=== PATIENT | female | born 1990 | race Caucasian/White ===

== ENCOUNTER 2019-07-20 16:35 | Inpatient (IN) ==
[2019-07-20] MEDS ORDERED: OXYTOCIN 30 UNITS/500 ML BAG IV PRN ×2 (16:57→17:01)
[2019-07-20] MEDS ORDERED: PENICILLIN G POTASSIUM 6 MU in DEXTROSE 5% 250 ML IV STA (16:57)
[2019-07-20] MEDS: LACTATED RINGER'S 1,000 ML IV PRN ×2 (17:05→22:00)
--- NOTE | 2019-07-20 17:05 | History & Physical Report ---
Date of Service July 20, 2019 Assessment & Plan (1) Prolonged , antepartum: (2) Carrier of group B Streptococcus: -Tracing category 1 -Gross rupture, postdates -GBS positive, will start penicillin per protocol -Pitocin for induction of labor -Anticipate vaginal delivery History of Present Illness Chief Complaint: Rupture of membranes Primary Care Provider: NO PCP The patient is a 28-year old 1 para 0 with an EDC of 17 July by first trimester ultrasound at 40+ weeks gestational age presents to labor and delivery with leaking of fluid. Patient states that her membranes ruptured approximately 2 hours ago. She has been having mild irregular contractions for the last 48 hours. The patient has had a benign course. Her blood type is O+, antibody negative, rubella immune, hepatitis B negative, HIV negative, normal 1 hour Glucola x2, and a positive third trimester beta strep culture. Allergies Allergy/AdvReac Type Severity Reaction Status Date / Time No Known Drug Allergies Allergy Verified 07/17/19 08:16 Home Medications Home Medications Medication Instructions Recorded Confirmed Type cetirizine 10 mg tablet PO tab 04/14/19 07/17/19 History docosahexanoic acid PO 04/14/19 07/17/19 History montelukast 10 mg tablet PO tab 04/14/19 07/17/19 History ferrous sulfate PO 05/08/19 07/17/19 History Patient History Medical History Allergic rhinitis Asthma Chronic vulvitis Scoliosis History of galactorrhea Surgical History S/P wisdom tooth extraction Status post LASIK surgery Family History Mother Endometriosis Grandmother (Maternal) Diabetes Hypertension Dyslipidemia Father Hypertension Social History Smoking Status: Never smoker Physical Exam Constitutional: WD/WN, vitals as above Respiratory: Auscultation: lungs clear to auscultation bilaterally Cardiovascular: RRR, no murmur, no edema Extremities: no calf tenderness Gastrointestinal (Abdomen): Gravid, vertex, positive heart tones, estimated weight of 7 and half pounds Genitourinary: OB Exam Monitor Tracing: + category I and + normal FHT variability Cervix: Sterile speculum examination-gross rupture, cervix 4 cm/80%/-2 Results & Data Vital Signs (Past 12 Hours) Vital Signs Pulse BP 07/20/19 16:44 92 H 140/93
[2019-07-20 17:35] LABS: Hematocrit (blood only) 35.9 % (37-47); Hemoglobin 12.2 g/dL (12.0-16.0); Mean Corpuscular Hemoglobin 30.4 pg (25-34); Mean Corpuscular Volume 89.5 fL (80-100); Mean Platelet Volume 12.7 fL (7.4-10.4); Platelet Count 134 K/uL (130-400); RDW Coefficient of Variation 13.8 % (11.5-14.5); RDW Standard Deviation 45.3 fL (36.4-46.3); Red Blood Count 4.01 M/uL (4.2-5.4); White Blood Count 13.24 K/uL (4.8-10.8)
[2019-07-20] MEDS ORDERED: fentaNYL citrate 100 MCG/2 ML VIAL ONE (19:26)
[2019-07-20] MEDS ORDERED: fentaNYL 2MCG/ML ROPIV 1.25MG/ML 100 ML BAG EPI ONE (19:27)
[2019-07-20] MEDS ORDERED: BUPIVACAINE 0.25% 30 ML VIAL ONE (19:27)
[2019-07-20] MEDS ORDERED: ePHEDrine sulfate 50 MG/ML AMP ONE (19:27)
[2019-07-20] MEDS ORDERED: BUTORPHANOL TARTRATE 1 MG/ML VIAL IV PRN (19:28)
[2019-07-20] MEDS ORDERED: ONDANSETRON INJ 2 MG/ML 2 ML VIAL IV PRN (20:29)
[2019-07-20] MEDS ORDERED: DiphenhydrAMINE HCL 50 MG/ML VIAL IV PRN (20:29)
[2019-07-20] MEDS ORDERED: NALOXONE HCL 0.4 MG/1 ML VIAL/CARP IV PRN (20:29)
[2019-07-20] MEDS ORDERED: NALBUPHINE HCL INJ 10 MG/ML AMP IV PRN (20:29)
[2019-07-20] MEDS ORDERED: NALOXONE HCL 1 MG in SODIUM CHLORIDE 0.9% 1000ML 1,000 ML IV PRN (20:29)
[2019-07-20] MEDS ORDERED: ePHEDrine sulfate 50 MG/ML AMP IV PRN (20:29)
[2019-07-20] MEDS ORDERED: PROMETHAZINE HCL 6.25 MG in SODIUM CHLORIDE 0.9% 50 ML IV PRN (20:29)
--- NOTE | 2019-07-20 20:31 | Anesthesiology Consultation ---
Date of Service July 20, 2019 Assessment & Plan (1) Encounter for pre-operative examination: Chart Review Chart Review: Acceptable Risk for Surgery and Patient NOT seen in Pre Admission Testing Consults Requested none ASA ASA2 Proposed Anesthesia Anesthesia Type: Labor Epidural Risk / Benefits Reviewed With: PT / POA / Parent / Guardian, Accepts Plan and Informed Consent Obtained History Height/Weight Height: 5 ft 2 in Weight: 86.183 kg Allergies Allergy/AdvReac Type Severity Reaction Status Date / Time No Known Drug Allergies Allergy Verified 07/17/19 08:16 Medications Home Medications Medication Instructions Recorded Confirmed Last Taken cetirizine [Zyrtec] 10 mg PO DAILY 07/20/19 07/20/19 07/20/19 ferrous sulfate [Iron (ferrous 325 mg PO DAILY 07/20/19 07/20/19 07/20/19 sulfate)] montelukast 10 mg PO PM 07/20/19 07/20/19 07/20/19 vit-iron fum-folic ac 1 tab PO DAILY 07/20/19 07/20/19 07/20/19 [ Vitamin] Active Medications Generic Name Dose Route Start Last Admin Trade Name Freq PRN Reason Stop Dose Admin Lactated Ringer's 1,000 mls @ 125 mls/hr 07/20/19 16:57 07/20/19 17:45 Lr IV 07/22/19 16:56 125 mls/hr .Q8H PRN Infusion L&D Protocol Protocol Oxytocin 30 units in 500 mls @ 5 mls/hr 07/20/19 17:01 07/20/19 20:00 Pitocin IV 07/22/19 17:00 0.3 units/hr .Q24H PRN 5 mls/hr Labor Induction/Augmentation Titration Protocol 0.3 UNITS/HR NPO Date Last Intake of Fluids: 07/20/19 Time Last Intake of Fluids: 20:00 Date Last Intake of Solids: 07/20/19 Time Last Intake of Solids: 12:00 Past Medical History Medical History Allergic rhinitis Asthma Chronic vulvitis Scoliosis Migraine History of galactorrhea Exercise / Class Metabolic Activity II 4-5 Yardwork/Stairs/Walk up hill Past Family History Family History Mother Endometriosis Grandmother (Maternal) Diabetes Hypertension Dyslipidemia Father Hypertension Past Surgical History Surgical History S/P wisdom tooth extraction Status post LASIK surgery Past Anesthesia History No Hx of Anesthesia Complications and No Family Hx of Anesthesia Complications History of PONV No Hx of PONV and No Hx of Motion Sickness Social History Smoking Status: Never smoker Hx Alcohol Use: No Hx Substance Use: No Physical Exam Vital Signs Last Vital Signs Temp 36.6 C 07/20/19 19:04 Pulse 86 07/20/19 19:03 Resp 18 07/20/19 20:03 BP 133/93 07/20/19 19:03 ENMT Mouth: no dentition abnormality Thyromental Distance: > or= 3.5 Finger Breadths Mallampati Class: II Neck normal visual inspection Respiratory normal respiratory effort Auscultation: lungs clear to auscultation bilaterally Cardiovascular Rate/Rhythm: regular rate and regular rhythm Psychiatric Orientation: alert Testing Laboratory Results 07/20/19 17:11
--- NOTE | 2019-07-20 21:23 | Labor Progress Brief Note ---
Date of Service July 20, 2019 Subjective Reason For Note: Routine Evaluation Comfortable with epidural Assessment & Plan (1) Carrier of group B Streptococcus: (2) Prolonged , antepartum: - tracing Cat II - comfortable with epidural - continue pitocin Physical Exam Genitourinary: OB Exam Monitor Tracing: + category II and + normal FHT variability Cervix; / Results & Data Vital Signs (Past 12 Hours) Vital Signs Temp Pulse Resp BP Pulse Ox 07/20/19 21:21 88 119/65 07/20/19 21:19 84 100 07/20/19 21:14 86 100 07/20/19 21:09 81 99 07/20/19 21:05 81 129/77 07/20/19 21:04 78 100 07/20/19 21:03 73 128/75 07/20/19 21:01 83 120/83 07/20/19 20:59 76 117/76 100 07/20/19 20:57 98.2 F 86 18 113/72 07/20/19 20:55 88 122/83 07/20/19 20:54 87 100 07/20/19 20:53 90 120/84 07/20/19 20:51 95 H 128/86 07/20/19 20:49 86 123/76 100 07/20/19 20:47 83 127/87 07/20/19 20:44 84 100 07/20/19 20:43 93 H 132/86 07/20/19 20:39 97 H 100 07/20/19 20:34 98 H 99 07/20/19 20:29 82 140/90 07/20/19 20:03 18 07/20/19 19:04 97.9 F 18 07/20/19 19:03 86 133/93 07/20/19 19:00 18 07/20/19 18:30 18 07/20/19 18:00 98.8 F 18 07/20/19 17:47 85 131/75 07/20/19 16:45 98.8 F 18 07/20/19 16:44 98.8 F 92 H 18 140/93
[2019-07-20] MEDS: PENICILLIN G POTASSIUM 3 MU in DEXTROSE 5% 100 ML IV PRN (22:00)
[2019-07-21] MEDS: PENICILLIN G POTASSIUM 3 MU in DEXTROSE 5% 100 ML IV PRN ×3 (02:04→09:19)
[2019-07-21] MEDS: fentaNYL 2MCG/ML ROPIV 1.25MG/ML 100 ML BAG EPI PRN ×2 (03:22→10:25)
[2019-07-21] MEDS ORDERED: CEFAZOLIN 2000MG 2,000 MG/15 ML SYR IV SCH (06:00)
[2019-07-21] MEDS ORDERED: CITRIC ACID/SODIUM CITRATE 15 ML UDC PO SCH (06:00)
--- NOTE | 2019-07-21 06:07 | Labor Progress Brief Note ---
Date of Service July 21, 2019 Subjective Starting 2nd stage Assessment & Plan (1) Carrier of group B Streptococcus: (2) Prolonged , antepartum: - tracing Cat II - starting 2nd stage Physical Exam Physical Exam: Cervix: Complete/REED/(+)1 Results & Data Vital Signs (Past 12 Hours) Vital Signs Temp Pulse Resp BP Pulse Ox 07/21/19 06:04 122 H 100 07/21/19 06:03 115 H 88 L 07/21/19 05:59 114 H 100 07/21/19 05:54 96 H 100 07/21/19 05:51 94 H 138/82 07/21/19 05:49 89 100 07/21/19 05:44 92 H 100 07/21/19 05:39 103 H 100 07/21/19 05:36 102 H 127/70 07/21/19 05:34 104 H 100 07/21/19 05:29 104 H 100 07/21/19 05:24 107 H 99 07/21/19 05:21 100 H 135/78 07/21/19 05:19 106 H 100 07/21/19 05:14 106 H 100 07/21/19 05:09 105 H 100 07/21/19 05:05 117 H 128/67 07/21/19 05:04 103 H 100 07/21/19 04:59 103 H 100 07/21/19 04:54 108 H 100 07/21/19 04:51 113 H 134/61 07/21/19 04:49 105 H 100 07/21/19 04:44 99 H 99 07/21/19 04:39 90 100 07/21/19 04:37 100 H 126/67 07/21/19 04:35 18 07/21/19 04:34 90 100 07/21/19 04:29 100 H 100 07/21/19 04:24 97 H 100 07/21/19 04:20 99 H 130/73 07/21/19 04:19 103 H 100 07/21/19 04:14 96 H 100 07/21/19 04:09 96 H 100 07/21/19 04:05 104 H 137/84 07/21/19 04:04 102 H 100 07/21/19 04:02 98.4 F 18 07/21/19 03:59 101 H 100 07/21/19 03:54 99 H 100 07/21/19 03:51 102 H 134/77 07/21/19 03:49 104 H 100 07/21/19 03:44 100 H 100 07/21/19 03:39 103 H 100 07/21/19 03:36 104 H 18 130/81 07/21/19 03:34 115 H 100 07/21/19 03:29 95 H 100 07/21/19 03:24 95 H 100 07/21/19 03:20 95 H 119/75 07/21/19 03:19 88 100 07/21/19 03:14 98 H 100 07/21/19 03:09 92 H 100 07/21/19 03:05 100 H 18 130/81 07/21/19 03:04 95 H 100 07/21/19 02:59 101 H 100 07/21/19 02:54 93 H 100 07/21/19 02:51 100 H 131/75 07/21/19 02:49 96 H 100 07/21/19 02:44 89 100 07/21/19 02:39 78 100 07/21/19 02:35 84 18 120/70 07/21/19 02:34 78 100 07/21/19 02:29 76 100 07/21/19 02:24 80 100 07/21/19 02:21 78 120/72 07/21/19 02:19 77 100 07/21/19 02:14 78 100 07/21/19 02:09 76 100 07/21/19 02:06 97.7 F 80 18 123/72 07/21/19 02:04 90 100 07/21/19 01:59 90 100 07/21/19 01:54 90 100 07/21/19 01:51 93 H 125/73 07/21/19 01:49 83 100 07/21/19 01:44 90 100 07/21/19 01:39 79 99 07/21/19 01:35 74 18 126/71 07/21/19 01:34 76 100 07/21/19 01:29 79 99 07/21/19 01:24 91 H 100 07/21/19 01:20 85 133/73 07/21/19 01:19 86 100 07/21/19 01:14 82 100 07/21/19 01:09 86 100 07/21/19 01:06 82 18 128/72 07/21/19 01:04 87 100 07/21/19 00:59 85 100 07/21/19 00:54 87 100 07/21/19 00:50 89 125/76 07/21/19 00:49 96 H 100 07/21/19 00:44 82 100 07/21/19 00:39 89 100 07/21/19 00:35 93 H 18 124/75 07/21/19 00:34 90 100 07/21/19 00:29 94 H 100 07/21/19 00:24 89 100 07/21/19 00:21 90 131/82 07/21/19 00:19 90 100 07/21/19 00:14 91 H 100 07/21/19 00:09 98 H 100 07/21/19 00:06 88 126/73 07/21/19 00:05 98.4 F 18 07/21/19 00:04 88 100 07/20/19 23:59 88 100 07/20/19 23:54 90 100 07/20/19 23:51 88 122/77 07/20/19 23:49 95 H 100 07/20/19 23:44 87 100 07/20/19 23:39 85 100 07/20/19 23:35 86 129/78 07/20/19 23:34 103 H 18 100 07/20/19 23:29 87 100 07/20/19 23:24 79 100 07/20/19 23:20 79 119/71 07/20/19 23:19 76 100 07/20/19 23:14 86 100 07/20/19 23:09 81 100 07/20/19 23:04 80 100 07/20/19 22:59 82 100 07/20/19 22:54 88 100 07/20/19 22:51 98.2 F 83 18 121/76 07/20/19 22:49 79 100 07/20/19 22:44 84 100 07/20/19 22:39 89 100 07/20/19 22:36 72 18 118/72 07/20/19 22:34 72 100 07/20/19 22:29 67 100 07/20/19 22:24 79 100 07/20/19 22:19 91 H 100 07/20/19 22:14 83 100 07/20/19 22:11 81 107/62 07/20/19 22:09 97 H 99 07/20/19 22:04 84 18 100 07/20/19 21:59 112 H 100 07/20/19 21:54 81 99 07/20/19 21:51 87 129/75 07/20/19 21:49 97 H 100 07/20/19 21:44 90 100 07/20/19 21:39 81 100 07/20/19 21:35 76 18 110/61 07/20/19 21:34 82 100 07/20/19 21:29 84 100 07/20/19 21:24 81 100 07/20/19 21:21 88 119/65 07/20/19 21:19 84 100 07/20/19 21:14 86 100 07/20/19 21:09 81 99 07/20/19 21:05 81 129/77 07/20/19 21:04 78 100 07/20/19 21:03 73 128/75 07/20/19 21:01 83 18 120/83 07/20/19 20:59 76 117/76 100 07/20/19 20:57 98.2 F 86 18 113/72 07/20/19 20:55 88 122/83 07/20/19 20:54 87 100 07/20/19 20:53 90 120/84 07/20/19 20:51 95 H 128/86 07/20/19 20:49 86 123/76 100 07/20/19 20:47 83 127/87 07/20/19 20:44 84 100 07/20/19 20:43 93 H 18 132/86 07/20/19 20:39 97 H 100 07/20/19 20:34 98 H 99 07/20/19 20:29 82 140/90 07/20/19 20:03 18 07/20/19 19:04 97.9 F 18 07/20/19 19:03 86 133/93 07/20/19 19:00 18 07/20/19 18:30 18
[2019-07-21] MEDS: LACTATED RINGER'S 1,000 ML IV PRN (06:52)
--- NOTE | 2019-07-21 07:19 | Labor Progress Brief Note ---
Date of Service July 21, 2019 Subjective Reason For Note: Routine Evaluation Assessment & Plan (1) Prolonged , antepartum: (2) Carrier of group B Streptococcus: - tracing Cat II - pushing for over 1 hour - minimal descent - continue 2nd stage Physical Exam Physical Exam: Cervix: Complete/(+)1, caput Results & Data Vital Signs (Past 12 Hours) Vital Signs Temp Pulse Resp BP Pulse Ox 07/21/19 07:14 108 H 99 07/21/19 07:13 121 H 89 L 07/21/19 07:09 90 99 07/21/19 07:05 98.6 F 86 20 140/76 07/21/19 07:04 98 H 100 07/21/19 06:59 86 99 07/21/19 06:54 103 H 98 07/21/19 06:53 118 H 87 L 07/21/19 06:50 86 127/60 07/21/19 06:49 94 H 99 07/21/19 06:44 91 H 98 07/21/19 06:39 101 H 79 L 07/21/19 06:35 116 H 20 128/62 07/21/19 06:34 106 H 98 07/21/19 06:29 111 H 100 07/21/19 06:24 105 H 99 07/21/19 06:19 110 H 99 07/21/19 06:17 117 H 84 L 07/21/19 06:14 100 H 100 07/21/19 06:11 115 H 90 07/21/19 06:09 101 H 100 07/21/19 06:06 102 H 131/72 07/21/19 06:04 122 H 100 07/21/19 06:03 115 H 88 L 07/21/19 05:59 114 H 100 07/21/19 05:56 99.5 F 18 07/21/19 05:54 96 H 100 07/21/19 05:51 94 H 138/82 07/21/19 05:49 89 100 07/21/19 05:44 92 H 100 07/21/19 05:39 103 H 100 07/21/19 05:36 102 H 127/70 07/21/19 05:34 104 H 100 07/21/19 05:29 104 H 18 100 07/21/19 05:24 107 H 99 07/21/19 05:21 100 H 135/78 07/21/19 05:19 106 H 100 07/21/19 05:14 106 H 100 07/21/19 05:09 105 H 100 07/21/19 05:05 117 H 18 128/67 07/21/19 05:04 103 H 100 07/21/19 04:59 103 H 100 07/21/19 04:54 108 H 100 07/21/19 04:51 113 H 134/61 07/21/19 04:49 105 H 100 07/21/19 04:44 99 H 99 07/21/19 04:39 90 100 07/21/19 04:37 100 H 126/67 07/21/19 04:35 18 07/21/19 04:34 90 100 07/21/19 04:29 100 H 100 07/21/19 04:24 97 H 100 07/21/19 04:20 99 H 130/73 07/21/19 04:19 103 H 100 07/21/19 04:14 96 H 100 07/21/19 04:09 96 H 100 07/21/19 04:05 104 H 137/84 07/21/19 04:04 102 H 100 07/21/19 04:02 98.4 F 18 07/21/19 03:59 101 H 100 07/21/19 03:54 99 H 100 07/21/19 03:51 102 H 134/77 07/21/19 03:49 104 H 100 07/21/19 03:44 100 H 100 07/21/19 03:39 103 H 100 07/21/19 03:36 104 H 18 130/81 07/21/19 03:34 115 H 100 07/21/19 03:29 95 H 100 07/21/19 03:24 95 H 100 07/21/19 03:20 95 H 119/75 07/21/19 03:19 88 100 07/21/19 03:14 98 H 100 07/21/19 03:09 92 H 100 07/21/19 03:05 100 H 18 130/81 07/21/19 03:04 95 H 100 07/21/19 02:59 101 H 100 07/21/19 02:54 93 H 100 07/21/19 02:51 100 H 131/75 07/21/19 02:49 96 H 100 07/21/19 02:44 89 100 07/21/19 02:39 78 100 07/21/19 02:35 84 18 120/70 07/21/19 02:34 78 100 07/21/19 02:29 76 100 07/21/19 02:24 80 100 07/21/19 02:21 78 120/72 07/21/19 02:19 77 100 07/21/19 02:14 78 100 07/21/19 02:09 76 100 07/21/19 02:06 97.7 F 80 18 123/72 07/21/19 02:04 90 100 07/21/19 01:59 90 100 07/21/19 01:54 90 100 07/21/19 01:51 93 H 125/73 07/21/19 01:49 83 100 07/21/19 01:44 90 100 07/21/19 01:39 79 99 07/21/19 01:35 74 18 126/71 07/21/19 01:34 76 100 07/21/19 01:29 79 99 07/21/19 01:24 91 H 100 07/21/19 01:20 85 133/73 07/21/19 01:19 86 100 07/21/19 01:14 82 100 07/21/19 01:09 86 100 07/21/19 01:06 82 18 128/72 07/21/19 01:04 87 100 07/21/19 00:59 85 100 07/21/19 00:54 87 100 07/21/19 00:50 89 125/76 07/21/19 00:49 96 H 100 07/21/19 00:44 82 100 07/21/19 00:39 89 100 07/21/19 00:35 93 H 18 124/75 07/21/19 00:34 90 100 07/21/19 00:29 94 H 100 07/21/19 00:24 89 100 07/21/19 00:21 90 131/82 07/21/19 00:19 90 100 07/21/19 00:14 91 H 100 07/21/19 00:09 98 H 100 07/21/19 00:06 88 126/73 07/21/19 00:05 98.4 F 18 07/21/19 00:04 88 100 07/20/19 23:59 88 100 07/20/19 23:54 90 100 07/20/19 23:51 88 122/77 07/20/19 23:49 95 H 100 07/20/19 23:44 87 100 07/20/19 23:39 85 100 07/20/19 23:35 86 129/78 07/20/19 23:34 103 H 18 100 07/20/19 23:29 87 100 07/20/19 23:24 79 100 07/20/19 23:20 79 119/71 07/20/19 23:19 76 100 07/20/19 23:14 86 100 07/20/19 23:09 81 100 07/20/19 23:04 80 100 07/20/19 22:59 82 100 07/20/19 22:54 88 100 07/20/19 22:51 98.2 F 83 18 121/76 07/20/19 22:49 79 100 07/20/19 22:44 84 100 07/20/19 22:39 89 100 07/20/19 22:36 72 18 118/72 07/20/19 22:34 72 100 07/20/19 22:29 67 100 07/20/19 22:24 79 100 07/20/19 22:19 91 H 100 07/20/19 22:14 83 100 07/20/19 22:11 81 107/62 07/20/19 22:09 97 H 99 07/20/19 22:04 84 18 100 07/20/19 21:59 112 H 100 07/20/19 21:54 81 99 07/20/19 21:51 87 129/75 07/20/19 21:49 97 H 100 07/20/19 21:44 90 100 07/20/19 21:39 81 100 07/20/19 21:35 76 18 110/61 07/20/19 21:34 82 100 07/20/19 21:29 84 100 07/20/19 21:24 81 100 07/20/19 21:21 88 119/65 07/20/19 21:19 84 100 07/20/19 21:14 86 100 07/20/19 21:09 81 99 07/20/19 21:05 81 129/77 07/20/19 21:04 78 100 07/20/19 21:03 73 128/75 07/20/19 21:01 83 18 120/83 07/20/19 20:59 76 117/76 100 07/20/19 20:57 98.2 F 86 18 113/72 07/20/19 20:55 88 122/83 07/20/19 20:54 87 100 07/20/19 20:53 90 120/84 07/20/19 20:51 95 H 128/86 07/20/19 20:49 86 123/76 100 07/20/19 20:47 83 127/87 07/20/19 20:44 84 100 07/20/19 20:43 93 H 18 132/86 07/20/19 20:39 97 H 100 07/20/19 20:34 98 H 99 07/20/19 20:29 82 140/90 07/20/19 20:03 18
[2019-07-21] MEDS ORDERED: CITRIC ACID/SODIUM CITRATE 15 ML UDC ONE (10:27)
--- NOTE | 2019-07-21 10:41 | Labor Progress Brief Note ---
Date of Service July 21, 2019 Patient has been pushing effective for the past 4 hours. Pitocin has been increased over the past 2 hours to 16 milliunits. Presenting part is still at +2 station & to high to attempt a vaccuum assisted delivery. Patient & her have been counseled that section is indicated now that maternal exhaustion is evident & there has been no further descent of the head over the past hour. The procedure & it's risks were reviewed with the patient & her family . All of their questions have been answered & consents have been signed. Assessment & Plan (1) Failure to progress in labor: arrest of descent in active labor maternal exhaustion will proceed with section. Physical Exam Respiratory: normal respiratory effort, lungs clear to auscultation Cardiovascular: RRR, no murmur, no edema Psychiatric: A+Ox3, euthymic affect Genitourinary: Manual OB Exam: + cervical dilation 10 cm, + cervical effacement 100% and + station + 2 OB Exam Monitor Tracing: + external FHT monitor used, + external uterine monitor used, + category I, + normal FHT variability and + early decelerations present Results & Data Vital Signs (Past 12 Hours) Vital Signs Temp Pulse Resp BP Pulse Ox 07/21/19 10:30 92 H 98 07/21/19 10:28 112 H 89 L 07/21/19 10:25 92 H 98 07/21/19 10:21 99 H 145/84 H 07/21/19 10:20 98 H 97 07/21/19 10:19 104 H 92 07/21/19 10:15 116 H 99 07/21/19 10:10 115 H 98 07/21/19 10:05 116 H 99 07/21/19 10:00 108 H 98 07/21/19 09:55 109 H 98 07/21/19 09:52 122 H 155/81 H 07/21/19 09:50 112 H 99 07/21/19 09:44 128 H 99 07/21/19 09:39 125 H 100 07/21/19 09:36 122 H 145/77 H 07/21/19 09:34 110 H 99 07/21/19 09:31 115 H 86 L 07/21/19 09:29 97 H 98 07/21/19 09:25 120 H 87 L 07/21/19 09:24 102 H 99 07/21/19 09:19 115 H 99 07/21/19 09:14 103 H 100 07/21/19 09:09 107 H 98 07/21/19 09:06 138 H 85 L 07/21/19 09:04 131 H 95 07/21/19 08:59 94 H 99 07/21/19 08:54 97 H 98 07/21/19 08:53 104 H 83 L 07/21/19 08:49 88 97 07/21/19 08:44 102 H 98 07/21/19 08:39 119 H 98 07/21/19 08:37 113 H 85 L 07/21/19 08:35 80 145/75 H 07/21/19 08:34 96 H 98 07/21/19 08:29 98 H 98 07/21/19 08:24 93 H 98 07/21/19 08:19 109 H 98 07/21/19 08:14 90 98 07/21/19 08:09 86 98 07/21/19 08:05 91 H 150/84 H 07/21/19 08:04 89 98 07/21/19 07:59 87 97 07/21/19 07:54 103 H 98 07/21/19 07:50 93 H 147/86 H 07/21/19 07:49 108 H 98 07/21/19 07:44 101 H 98 07/21/19 07:39 115 H 98 07/21/19 07:35 88 134/82 07/21/19 07:34 91 H 98 07/21/19 07:29 101 H 98 07/21/19 07:24 107 H 98 07/21/19 07:20 90 133/80 07/21/19 07:19 107 H 99 07/21/19 07:14 108 H 99 07/21/19 07:13 121 H 89 L 07/21/19 07:09 90 99 07/21/19 07:05 98.6 F 86 20 140/76 07/21/19 07:04 98 H 100 07/21/19 06:59 86 99 07/21/19 06:54 103 H 98 07/21/19 06:53 118 H 87 L 07/21/19 06:50 86 127/60 07/21/19 06:49 94 H 99 07/21/19 06:44 91 H 98 07/21/19 06:39 101 H 79 L 07/21/19 06:35 116 H 20 128/62 07/21/19 06:34 106 H 98 07/21/19 06:29 111 H 100 07/21/19 06:24 105 H 99 07/21/19 06:19 110 H 99 07/21/19 06:17 117 H 84 L 07/21/19 06:14 100 H 100 07/21/19 06:11 115 H 90 07/21/19 06:09 101 H 100 07/21/19 06:06 102 H 131/72 07/21/19 06:04 122 H 100 07/21/19 06:03 115 H 88 L 07/21/19 05:59 114 H 100 07/21/19 05:56 99.5 F 18 07/21/19 05:54 96 H 100 07/21/19 05:51 94 H 138/82 07/21/19 05:49 89 100 07/21/19 05:44 92 H 100 07/21/19 05:39 103 H 100 07/21/19 05:36 102 H 127/70 07/21/19 05:34 104 H 100 07/21/19 05:29 104 H 18 100 07/21/19 05:24 107 H 99 07/21/19 05:21 100 H 135/78 07/21/19 05:19 106 H 100 07/21/19 05:14 106 H 100 07/21/19 05:09 105 H 100 07/21/19 05:05 117 H 18 128/67 07/21/19 05:04 103 H 100 07/21/19 04:59 103 H 100 07/21/19 04:54 108 H 100 07/21/19 04:51 113 H 134/61 07/21/19 04:49 105 H 100 07/21/19 04:44 99 H 99 07/21/19 04:39 90 100 07/21/19 04:37 100 H 126/67 07/21/19 04:35 18 07/21/19 04:34 90 100 07/21/19 04:29 100 H 100 07/21/19 04:24 97 H 100 07/21/19 04:20 99 H 130/73 07/21/19 04:19 103 H 100 07/21/19 04:14 96 H 100 07/21/19 04:09 96 H 100 07/21/19 04:05 104 H 137/84 07/21/19 04:04 102 H 100 07/21/19 04:02 98.4 F 18 07/21/19 03:59 101 H 100 07/21/19 03:54 99 H 100 07/21/19 03:51 102 H 134/77 07/21/19 03:49 104 H 100 07/21/19 03:44 100 H 100 07/21/19 03:39 103 H 100 07/21/19 03:36 104 H 18 130/81 07/21/19 03:34 115 H 100 07/21/19 03:29 95 H 100 07/21/19 03:24 95 H 100 07/21/19 03:20 95 H 119/75 07/21/19 03:19 88 100 07/21/19 03:14 98 H 100 07/21/19 03:09 92 H 100 07/21/19 03:05 100 H 18 130/81 07/21/19 03:04 95 H 100 07/21/19 02:59 101 H 100 07/21/19 02:54 93 H 100 07/21/19 02:51 100 H 131/75 07/21/19 02:49 96 H 100 07/21/19 02:44 89 100 07/21/19 02:39 78 100 07/21/19 02:35 84 18 120/70 07/21/19 02:34 78 100 07/21/19 02:29 76 100 07/21/19 02:24 80 100 07/21/19 02:21 78 120/72 07/21/19 02:19 77 100 07/21/19 02:14 78 100 07/21/19 02:09 76 100 07/21/19 02:06 97.7 F 80 18 123/72 07/21/19 02:04 90 100 07/21/19 01:59 90 100 07/21/19 01:54 90 100 07/21/19 01:51 93 H 125/73 07/21/19 01:49 83 100 07/21/19 01:44 90 100 07/21/19 01:39 79 99 07/21/19 01:35 74 18 126/71 07/21/19 01:34 76 100 07/21/19 01:29 79 99 07/21/19 01:24 91 H 100 07/21/19 01:20 85 133/73 07/21/19 01:19 86 100 07/21/19 01:14 82 100 07/21/19 01:09 86 100 07/21/19 01:06 82 18 128/72 07/21/19 01:04 87 100 07/21/19 00:59 85 100 07/21/19 00:54 87 100 07/21/19 00:50 89 125/76 07/21/19 00:49 96 H 100 07/21/19 00:44 82 100 07/21/19 00:39 89 100 07/21/19 00:35 93 H 18 124/75 07/21/19 00:34 90 100 07/21/19 00:29 94 H 100 07/21/19 00:24 89 100 07/21/19 00:21 90 131/82 07/21/19 00:19 90 100 07/21/19 00:14 91 H 100 07/21/19 00:09 98 H 100 07/21/19 00:06 88 126/73 07/21/19 00:05 98.4 F 18 07/21/19 00:04 88 100 07/20/19 23:59 88 100 07/20/19 23:54 90 100 07/20/19 23:51 88 122/77 07/20/19 23:49 95 H 100 07/20/19 23:44 87 100 07/20/19 23:39 85 100 07/20/19 23:35 86 129/78 07/20/19 23:34 103 H 18 100 07/20/19 23:29 87 100 07/20/19 23:24 79 100 07/20/19 23:20 79 119/71 07/20/19 23:19 76 100 07/20/19 23:14 86 100 07/20/19 23:09 81 100 07/20/19 23:04 80 100 07/20/19 22:59 82 100 07/20/19 22:54 88 100 07/20/19 22:51 98.2 F 83 18 121/76 07/20/19 22:49 79 100 07/20/19 22:44 84 100 07/20/19 22:39 89 100 07/20/19 22:36 72 18 118/72
[2019-07-21] MEDS ORDERED: LACTATED RINGER'S 1,000 ML IV SCH ×2 (10:45→12:30)
[2019-07-21] MEDS ORDERED: CHLOROPROCAINE HCL 3% 20 ML VIAL ONE (10:54)
[2019-07-21] MEDS ORDERED: OXYTOCIN 10 UNITS/ML VIAL ONE (11:13)
[2019-07-21] MEDS ORDERED: fentaNYL citrate 100 MCG/2 ML VIAL ONE (11:14)
[2019-07-21] MEDS ORDERED: LIDOCAINE 2% 20 MG/ML 5 ML SYR IV ONE (11:22)
[2019-07-21] MEDS ORDERED: ePHEDrine sulfate 50 MG/ML SYR ONE (11:22)
[2019-07-21] MEDS ORDERED: HYDROmorphone INJ 1 MG/ML SYRINGE IV PRN (11:30)
[2019-07-21] MEDS ORDERED: fentaNYL citrate 100 MCG/2 ML VIAL IV PRN (11:30)
[2019-07-21] MEDS ORDERED: ATROPINE SULFATE 0.1 MG/ML 10ML SYR IV PRN (11:30)
[2019-07-21] MEDS ORDERED: ONDANSETRON INJ 2 MG/ML 2 ML VIAL IV PRN ×2 (11:30→11:40)
[2019-07-21] MEDS ORDERED: ePHEDrine sulfate 50 MG/ML AMP IV PRN ×2 (11:30→11:40)
[2019-07-21] MEDS ORDERED: MoRPHine SULFATE PF 1 MG/ML 10 ML AMP/VIAL ONE (11:36)
[2019-07-21] MEDS ORDERED: LACTATED RINGER'S 500 ML IV PRN (11:40)
[2019-07-21] MEDS ORDERED: NALBUPHINE HCL INJ 10 MG/ML AMP IV PRN (11:40)
[2019-07-21] MEDS ORDERED: DiphenhydrAMINE HCL 50 MG/ML VIAL IV PRN (11:40)
[2019-07-21] MEDS ORDERED: NALOXONE HCL 0.4 MG/1 ML VIAL/CARP IV PRN (11:40)
[2019-07-21] MEDS ORDERED: NALOXONE HCL 0.08 MG in SYRINGE 1.8 ML IV PRN (11:40)
[2019-07-21] MEDS ORDERED: NALOXONE HCL 1 MG in SODIUM CHLORIDE 0.9% 1000ML 1,000 ML IV PRN (11:40)
[2019-07-21] MEDS ORDERED: MEPERIDINE HCL 25 MG/ML CARP IV PRN (11:40)
[2019-07-21] MEDS ORDERED: MoRPHine SULFATE PF 1 MG/ML 10 ML AMP/VIAL EPI ONE (11:40)
[2019-07-21] MEDS ORDERED: NO NARCOTICS OR SEDATIVES SCH (11:45)
[2019-07-21] MEDS ORDERED: SODIUM CHLORIDE 0.9% 1000ML 1,000 ML IV SCH (11:45)
[2019-07-21] MEDS ORDERED: DC INTRASPINAL MORPHINE SCH (11:45)
--- NOTE | 2019-07-21 12:07 | Post Operative Brief Note ---
[facility] Immediate Post Op with CF Date of Surgery July 21, 2019 Pre & Post Diagnosis Operation Date: 07/21/19 11:10 <No data on this case meets the specified criteria> arrest of descent delivery of viable male infant I identified the patient and participated in the time-out.: Yes Procedure Operation Date: 07/21/19 11:10 primary low transverse section <No data on this case meets the specified criteria> Surgeon Eileen Mahmood MD, FACOG Line [employer] [place] Estimated Blood Loss 300 Findings Consistent with Post-Op Diagnosis Drains [place] Catheter
[2019-07-21] MEDS ORDERED: BENZOCAINE 20% AER SPR 82.5 GM CAN EXT PRN (12:21)
[2019-07-21] MEDS ORDERED: SENNA 8.6 MG TAB PO PRN (12:21)
[2019-07-21] MEDS ORDERED: SUPERCREAM 0.870% 15 GM JAR EXT PRN (12:21)
[2019-07-21] MEDS ORDERED: PROMETHAZINE HCL 25 MG in SODIUM CHLORIDE 0.9% 50 ML IV PRN (12:21)
[2019-07-21] MEDS ORDERED: HYDROCORTISONE ACETATE 25 MG SUPP PR PRN (12:21)
[2019-07-21] MEDS ORDERED: MAGNESIUM HYDROXIDE SUSP 30 ML UDC PO PRN (12:21)
[2019-07-21] MEDS ORDERED: DIPHTHERIA/TETANUS/PERTUSSIS 0.5 ML SYR/VIAL IM ONE (12:21)
--- NOTE | 2019-07-21 13:00 | Operative Report ---
DATE OF OPERATION: 07/21/2019 SURGEON: Eileen Levine MD. IT SYSTEMS ADMINISTRATOR: Nalini Land, surgical clinical reviewer. PREOPERATIVE DIAGNOSES: Intrauterine at term with arrest of descent. POSTOPERATIVE DIAGNOSES: Intrauterine at term with arrest of descent with delivery of a viable male infant, Apgars 9 and 9. ANESTHESIA: Epidural. BLOOD LOSS: 300 mL. HISTORY: The patient is a 1, para 0 white female, EDC of 07/17/2019 who presented with ruptured membranes on 07/20/2019 at approximately 1600 hours. She received Pitocin augmentation of her labor and an effective epidural analgesia. After pushing for 4 hours despite good effort and adequate contractions, the head remained at approximately +2 station. Because there was not enough descent to attempt a vacuum-assisted delivery and because of the patient's exhaustion, it was felt prudent to proceed with a section at this time. She understands the risks of procedure and all the questions were answered and they consented to proceed with the section. GROSS FINDINGS: Uterus is gravid and consistent with a term in size. Bilateral ovaries and fallopian tubes are grossly normal. DESCRIPTION OF PROCEDURE: After the patient received adequate epidural anesthesia, she was prepped and draped in the usual sterile fashion. A low transverse skin incision was made with a scalpel and carried to the fascia with the same scalpel. The fascial incision was then extended with Goldsmith scissors. The edges were grasped with Diego clamps and the underlying rectus muscle was bluntly sharply dissected off of the overlying fascia. The rectus muscles were bluntly divided along the midline and the underlying peritoneum elevated and entered sharply. The bladder was then taken down off the anterior surface of the uterus and placed behind the bladder blade. The lower uterine segment was entered with the scalpel and extended transversely. The infant was delivered from the left occiput posterior presentation. The head was firmly wedged in the pelvis. With gentle pressure, the 's head was delivered through the incision. Mouth and nasopharynx were suctioned upon delivery. The rest of the delivered easily. Cord was clamped and cut, and the was handed off to Dr. Carrington who was in attendance as residential construction instructor. There was spontaneous crying and the infant was moving all 4 limbs. The placenta was expressed intact with a 3-vessel cord. The cord was somewhat short, but otherwise no other abnormalities. The uterus was exteriorized and covered with a clean lap sponge. The uterine cavity was explored and found to be free of any placental tissue or membranes. The uterus was then closed in 2 layers in a running locking imbricating fashion with 0 Monocryl. Hemostasis was noted to be excellent. The posterior cul-de-sac was irrigated with normal saline. The uterine incision was continued to have excellent hemostasis. The uterus was placed back inside the abdominal cavity. Some blood was removed from the left gutter. The uterine incision was examined once more and continued to have excellent hemostasis. The anterior cul-de-sac was irrigated with normal saline. The rectus muscles were then brought together in the midline with individual stitches of 0 Monocryl. The fascia was closed in a running fashion with 0 Vicryl. After irrigating the adipose layer, the skin edges were reapproximated using 4-0 Vicryl. Urine was clear at the end of the case. Mother and infant were doing well after delivery. I attest to the content of the Intraoperative Record and any orders documented therein. Any exceptions are noted below. SWEETIE
[2019-07-21] MEDS: OXYTOCIN 20 UNITS in LACTATED RINGER'S 1,000 ML IV SCH ×2 (13:08→21:22)
--- NOTE | 2019-07-21 14:06 | Anesthesiology Progress Note ---
Date of Service July 21, 2019 Anesthesia Post Procedure Vital Signs Vital Signs: Temp Pulse Resp BP Pulse Ox 07/21/19 14:02 88 111/58 L 99 07/21/19 13:57 80 96 07/21/19 13:52 82 124/58 L 98 07/21/19 13:47 79 97 07/21/19 13:43 89 20 120/60 97 07/21/19 13:42 89 120/60 97 07/21/19 13:37 80 98 07/21/19 13:32 82 119/58 L 97 07/21/19 13:27 84 97 07/21/19 13:22 80 118/59 L 98 07/21/19 13:19 36.6 C 88 20 98 07/21/19 13:17 88 98 07/21/19 13:13 36.5 C 80 18 118/59 L 98 07/21/19 13:12 85 117/60 96 07/21/19 13:07 80 98 07/21/19 13:03 85 117/60 96 07/21/19 13:02 79 128/77 98 07/21/19 12:58 84 92 07/21/19 12:57 82 98 07/21/19 12:53 95 H 20 128/81 98 07/21/19 12:52 96 H 100 07/21/19 12:50 100 H 93 07/21/19 12:47 95 H 100 07/21/19 12:44 80 124/74 07/21/19 12:43 80 20 124/74 99 07/21/19 12:42 104 H 83 L 07/21/19 12:41 104 H 91 07/21/19 12:37 81 86 L 07/21/19 12:36 93 H 91 07/21/19 12:33 87 20 138/60 100 07/21/19 12:32 89 97 07/21/19 12:31 88 164/68 H 07/21/19 12:30 94 H 89 L 07/21/19 12:27 92 H 99 07/21/19 12:23 104 H 20 91 07/21/19 12:22 87 97 07/21/19 12:17 81 99 07/21/19 12:13 36.6 C 20 07/21/19 12:12 82 143/65 H 99 07/21/19 10:57 102 H 97 07/21/19 10:52 91 H 97 07/21/19 10:50 93 H 147/84 H 07/21/19 10:47 89 99 07/21/19 10:42 99 H 97 07/21/19 10:40 101 H 149/91 H 07/21/19 10:37 92 H 98 07/21/19 10:30 92 H 98 07/21/19 10:28 112 H 89 L 07/21/19 10:25 92 H 98 07/21/19 10:21 99 H 145/84 H 07/21/19 10:20 98 H 97 07/21/19 10:19 104 H 92 07/21/19 10:15 116 H 99 07/21/19 10:10 115 H 98 07/21/19 10:05 116 H 99 07/21/19 10:00 108 H 98 07/21/19 09:55 109 H 98 07/21/19 09:52 122 H 155/81 H 07/21/19 09:50 112 H 99 07/21/19 09:44 128 H 99 07/21/19 09:39 125 H 100 07/21/19 09:36 122 H 145/77 H 07/21/19 09:34 110 H 99 07/21/19 09:31 115 H 86 L 07/21/19 09:29 97 H 98 07/21/19 09:25 120 H 87 L 07/21/19 09:24 102 H 99 07/21/19 09:19 115 H 99 07/21/19 09:14 103 H 100 07/21/19 09:09 107 H 98 07/21/19 09:06 138 H 85 L 07/21/19 09:04 131 H 95 07/21/19 08:59 94 H 99 07/21/19 08:54 97 H 98 07/21/19 08:53 104 H 83 L 07/21/19 08:49 88 97 07/21/19 08:44 102 H 98 07/21/19 08:39 119 H 98 07/21/19 08:37 113 H 85 L 07/21/19 08:35 80 145/75 H 07/21/19 08:34 96 H 98 07/21/19 08:29 98 H 98 07/21/19 08:24 93 H 98 07/21/19 08:19 109 H 98 07/21/19 08:14 90 98 07/21/19 08:09 86 98 07/21/19 08:05 91 H 150/84 H 07/21/19 08:04 89 98 07/21/19 07:59 87 97 07/21/19 07:54 103 H 98 07/21/19 07:50 93 H 147/86 H 07/21/19 07:49 108 H 98 07/21/19 07:44 101 H 98 07/21/19 07:39 115 H 98 07/21/19 07:35 88 134/82 07/21/19 07:34 91 H 98 07/21/19 07:29 101 H 98 07/21/19 07:24 107 H 98 07/21/19 07:20 90 133/80 07/21/19 07:19 107 H 99 07/21/19 07:14 108 H 99 07/21/19 07:13 121 H 89 L 07/21/19 07:09 90 99 07/21/19 07:05 37.0 C 86 20 140/76 07/21/19 07:04 98 H 100 07/21/19 06:59 86 99 07/21/19 06:54 103 H 98 07/21/19 06:53 118 H 87 L 07/21/19 06:50 86 127/60 07/21/19 06:49 94 H 99 07/21/19 06:44 91 H 98 07/21/19 06:39 101 H 79 L 07/21/19 06:35 116 H 20 128/62 07/21/19 06:34 106 H 98 07/21/19 06:29 111 H 100 07/21/19 06:24 105 H 99 07/21/19 06:19 110 H 99 07/21/19 06:17 117 H 84 L 07/21/19 06:14 100 H 100 07/21/19 06:11 115 H 90 07/21/19 06:09 101 H 100 07/21/19 06:06 102 H 131/72 07/21/19 06:04 122 H 100 07/21/19 06:03 115 H 88 L 07/21/19 05:59 114 H 100 07/21/19 05:56 37.5 C 18 07/21/19 05:54 96 H 100 07/21/19 05:51 94 H 138/82 07/21/19 05:49 89 100 07/21/19 05:44 92 H 100 07/21/19 05:39 103 H 100 07/21/19 05:36 102 H 127/70 07/21/19 05:34 104 H 100 07/21/19 05:29 104 H 18 100 07/21/19 05:24 107 H 99 07/21/19 05:21 100 H 135/78 07/21/19 05:19 106 H 100 07/21/19 05:14 106 H 100 07/21/19 05:09 105 H 100 07/21/19 05:05 117 H 18 128/67 07/21/19 05:04 103 H 100 07/21/19 04:59 103 H 100 07/21/19 04:54 108 H 100 07/21/19 04:51 113 H 134/61 07/21/19 04:49 105 H 100 07/21/19 04:44 99 H 99 07/21/19 04:39 90 100 07/21/19 04:37 100 H 126/67 07/21/19 04:35 18 07/21/19 04:34 90 100 07/21/19 04:29 100 H 100 07/21/19 04:24 97 H 100 07/21/19 04:20 99 H 130/73 07/21/19 04:19 103 H 100 07/21/19 04:14 96 H 100 07/21/19 04:09 96 H 100 07/21/19 04:05 104 H 137/84 07/21/19 04:04 102 H 100 07/21/19 04:02 36.9 C 18 07/21/19 03:59 101 H 100 07/21/19 03:54 99 H 100 07/21/19 03:51 102 H 134/77 07/21/19 03:49 104 H 100 07/21/19 03:44 100 H 100 07/21/19 03:39 103 H 100 07/21/19 03:36 104 H 18 130/81 07/21/19 03:34 115 H 100 07/21/19 03:29 95 H 100 07/21/19 03:24 95 H 100 07/21/19 03:20 95 H 119/75 07/21/19 03:19 88 100 07/21/19 03:14 98 H 100 07/21/19 03:09 92 H 100 07/21/19 03:05 100 H 18 130/81 07/21/19 03:04 95 H 100 07/21/19 02:59 101 H 100 07/21/19 02:54 93 H 100 07/21/19 02:51 100 H 131/75 07/21/19 02:49 96 H 100 07/21/19 02:44 89 100 07/21/19 02:39 78 100 07/21/19 02:35 84 18 120/70 07/21/19 02:34 78 100 07/21/19 02:29 76 100 07/21/19 02:24 80 100 07/21/19 02:21 78 120/72 07/21/19 02:19 77 100 07/21/19 02:14 78 100 07/21/19 02:09 76 100 07/21/19 02:06 36.5 C 80 18 123/72 07/21/19 02:04 90 100 07/21/19 01:59 90 100 07/21/19 01:54 90 100 07/21/19 01:51 93 H 125/73 07/21/19 01:49 83 100 07/21/19 01:44 90 100 07/21/19 01:39 79 99 07/21/19 01:35 74 18 126/71 07/21/19 01:34 76 100 07/21/19 01:29 79 99 07/21/19 01:24 91 H 100 07/21/19 01:20 85 133/73 07/21/19 01:19 86 100 07/21/19 01:14 82 100 07/21/19 01:09 86 100 07/21/19 01:06 82 18 128/72 07/21/19 01:04 87 100 07/21/19 00:59 85 100 07/21/19 00:54 87 100 07/21/19 00:50 89 125/76 07/21/19 00:49 96 H 100 07/21/19 00:44 82 100 07/21/19 00:39 89 100 07/21/19 00:35 93 H 18 124/75 07/21/19 00:34 90 100 07/21/19 00:29 94 H 100 07/21/19 00:24 89 100 07/21/19 00:21 90 131/82 07/21/19 00:19 90 100 07/21/19 00:14 91 H 100 07/21/19 00:09 98 H 100 07/21/19 00:06 88 126/73 07/21/19 00:05 36.9 C 18 07/21/19 00:04 88 100 07/20/19 23:59 88 100 07/20/19 23:54 90 100 07/20/19 23:51 88 122/77 07/20/19 23:49 95 H 100 07/20/19 23:44 87 100 07/20/19 23:39 85 100 07/20/19 23:35 86 129/78 07/20/19 23:34 103 H 18 100 07/20/19 23:29 87 100 07/20/19 23:24 79 100 07/20/19 23:20 79 119/71 07/20/19 23:19 76 100 07/20/19 23:14 86 100 07/20/19 23:09 81 100 07/20/19 23:04 80 100 07/20/19 22:59 82 100 07/20/19 22:54 88 100 07/20/19 22:51 36.8 C 83 18 121/76 07/20/19 22:49 79 100 07/20/19 22:44 84 100 07/20/19 22:39 89 100 07/20/19 22:36 72 18 118/72 07/20/19 22:34 72 100 07/20/19 22:29 67 100 07/20/19 22:24 79 100 07/20/19 22:19 91 H 100 07/20/19 22:14 83 100 07/20/19 22:11 81 107/62 07/20/19 22:09 97 H 99 07/20/19 22:04 84 18 100 07/20/19 21:59 112 H 100 07/20/19 21:54 81 99 07/20/19 21:51 87 129/75 07/20/19 21:49 97 H 100 07/20/19 21:44 90 100 07/20/19 21:39 81 100 07/20/19 21:35 76 18 110/61 07/20/19 21:34 82 100 07/20/19 21:29 84 100 07/20/19 21:24 81 100 07/20/19 21:21 88 119/65 07/20/19 21:19 84 100 07/20/19 21:14 86 100 07/20/19 21:09 81 99 07/20/19 21:05 81 129/77 07/20/19 21:04 78 100 07/20/19 21:03 73 128/75 07/20/19 21:01 83 18 120/83 07/20/19 20:59 76 117/76 100 07/20/19 20:57 36.8 C 86 18 113/72 07/20/19 20:55 88 122/83 07/20/19 20:54 87 100 07/20/19 20:53 90 120/84 07/20/19 20:51 95 H 128/86 07/20/19 20:49 86 123/76 100 07/20/19 20:47 83 127/87 07/20/19 20:44 84 100 07/20/19 20:43 93 H 18 132/86 07/20/19 20:39 97 H 100 07/20/19 20:34 98 H 99 07/20/19 20:29 82 140/90 07/20/19 20:03 18 07/20/19 19:04 36.6 C 18 07/20/19 19:03 86 133/93 07/20/19 19:00 18 07/20/19 18:30 18 07/20/19 18:00 37.1 C 18 07/20/19 17:47 85 131/75 07/20/19 16:45 37.1 C 18 07/20/19 16:44 37.1 C 92 H 18 140/93 Pain Intensity Bilateral Abdomen: Pain Intensity: 5 Transfer of Care Handoff Completed per policy Notes Mental Status: alert / awake / arousable and participated in evaluation Patient Amnestic to Procedure: Yes Nausea / Vomiting: adequately controlled Pain: adequately controlled Airway Patency, RR, SpO2: stable & adequate BP & HR: stable & adequate Hydration State: stable & adequate Anesthetic Complications: no major complications apparent and Pt Satisfied with anesthetic care
[2019-07-21] MEDS ORDERED: ACETAMINOPHEN 325 MG TAB PO PRN (14:46)
[2019-07-21] MEDS: SIMETHICONE 80 MG CHEW PO SCH ×3 (17:03→20:44)
[2019-07-21] MEDS: DOCUSATE SODIUM 100 MG CAP PO SCH (20:44)
[2019-07-22] MEDS ORDERED: ONDANSETRON INJ 2 MG/ML 2 ML VIAL IV PRN (05:40)
[2019-07-22] MEDS ORDERED: MEPERIDINE HCL 50 MG/ML CARP IV PRN (05:40)
[2019-07-22] MEDS ORDERED: KETOROLAC 30 MG/ML VIAL IV PRN (05:40)
[2019-07-22] MEDS ORDERED: DiphenhydrAMINE HCL 50 MG/ML VIAL IV PRN (05:40)
[2019-07-22] MEDS ORDERED: ZOLPIDEM TARTRATE 5 MG TAB PO PRN (05:40)
[2019-07-22] MEDS: IBUPROFEN 600 MG TAB PO PRN ×4 (06:32→21:20)
[2019-07-22] MEDS: OXYCODONE/ACETAMINOPHEN 5mg/325mg TAB PO PRN ×4 (06:33→21:20)
--- NOTE | 2019-07-22 06:52 | Obstetrical Progress Note ---
Date of Service <Jeremias Holden DO - Last Filed: 07/22/19 06:52> July 22, 2019 Assessment & Plan <Jeremias Holden DO - Last Filed: 07/22/19 06:52> (1) : -POD#1 -Vitals reviewed, WNL (Tmax 37.3) - GBS +, Blood Type O+ - Patient recieved penicillin prepartum - Clinically stable. - Feels well today. Eating well. Encourage ambulation. Barrientos catheter in place, removed later today. - Pain well controlled. - Routine post care - After discharge will have [address] Julianna Mckinley #:: 1 Subjective <Jeremias Holden DO - Last Filed: 07/22/19 06:52> Ambulation: limited ambulation Voiding: barrientos catheter in place Passing Gas:: Yes Diet Tolerance:: regular diet Lochia:: Small Feeding Type:: breast feeding Current Pain Level(1-10): 2 (improves with analgesics) Patient is a 28 POD#1. Patient states that she is doing well this morning and that her pain is well controlled. She has no complaints at this point in time. Constitutional: no fever and no chills Respiratory: no cough, no dyspnea and no wheezing Cardiovascular: no chest pain, no dyspnea, no dyspnea on exertion, no edema and no calf pain Breast: no breast pain Gastrointestinal: + abdominal pain; no nausea and no vomiting Genitourinary (female): no dysuria Neurologic: no headache(s) Physical Exam <Jeremias Holden DO - Last Filed: 07/22/19 06:52> Constitutional WD/WN, vitals as above Respiratory normal respiratory effort, lungs clear to auscultation Cardiovascular Rate/Rhythm: regular rate and regular rhythm Heart Sounds: normal S1 and normal S2; no click, no gallop, no murmur and no cardiac rub Extremities: + edema (+1); no calf tenderness Gastrointestinal (Abdomen) Inspection/Auscultation: abdomen normal to inspection, normal bowel sounds and + abdominal surgical incision (Clean and Dry, No Pus noted. ) Percussion/Palpation: + abdomen tender (TTP in lower quadrants, appropriate) and abdomen soft Genitourinary OB Exam Abdomen: + fundal height Fundus: + firm and + relation to umbilicus (2cm below); not tender and not boggy Results & Data <Jeremias Holden DO - Last Filed: 07/22/19 06:52> Vital Signs (Past 12 Hours) Vital Signs Temp Pulse Resp BP Pulse Ox Pulse Ox 07/22/19 06:00 16 98 07/22/19 03:50 37.3 C 83 18 101/64 99 07/22/19 02:35 16 98 07/22/19 01:05 16 99 07/22/19 00:40 16 98 07/21/19 23:50 15 99 07/21/19 23:10 37.3 C 79 16 121/74 99 99 07/21/19 22:35 18 97 07/21/19 21:25 18 98 07/21/19 20:44 20 100 07/21/19 19:20 36.6 C 78 20 132/78 100 Medications Administered Current Inpatient Medications Acetaminophen (Tylenol) 650 mg PO Q4H PRN PRN Reason: Pain or Fever Stop: 08/20/19 14:45 Benzocaine (Dermoplast Pain Relieving [place]) 1 appln EXT UD PRN PRN Reason: use on skin as needed Stop: 08/20/19 12:20 Bisacodyl (Dulcolax) 5 mg PO 2000 [facility] Stop: 07/22/19 20:01 Bisacodyl (Dulcolax) 10 mg TN PRN PRN PRN Reason: Constipation Stop: 08/22/19 12:20 Butorphanol Tartrate (Stadol) 1 mg IV Q1H PRN PRN Reason: Pain Stop: 08/19/19 19:27 Cocaine HCl (Supercream 0.870%) 1 gm EXT UD PRN PRN Reason: hemmorrhoidal inflammation Stop: 08/04/19 12:20 Diphenhydramine HCl (Benadryl) 25 mg IV QID PRN PRN Reason: Itching Stop: 08/21/19 05:39 Diphenhydramine HCl (Benadryl Capsule) 25 mg PO QID PRN PRN Reason: Itching Stop: 08/21/19 05:39 Docusate Sodium (Colace) 100 mg PO DAILY@08,21 [facility] Stop: 08/20/19 20:59 Last Admin: 07/21/19 20:44 Dose: 100 mg Documented by: Ferrous Sulfate (Feosol) 325 mg PO DAILY@08 [facility] Stop: 08/21/19 07:59 Hydrocortisone (Anusol Hc) 25 mg TN BID PRN PRN Reason: Hemorrhoids Stop: 08/20/19 12:20 Lactated Ringer's (Lr) 1,000 mls @ 125 mls/hr IV .Q8H PRN; Protocol PRN Reason: L&D Protocol Stop: 07/22/19 16:56 Last Infusion: 07/21/19 11:00 Dose: 999 mls/hr Documented by: Oxytocin (Pitocin) 30 units in 500 mls @ 333.333 mls/hr IV .Q1H30M PRN; Protocol PRN Reason: Bleeding Control Stop: 08/19/19 16:56 Penicillin G Potassium 3 mu/ (Dextrose) 106 mls @ 100 mls/hr IV Q4H PRN PRN Reason: Give until delivery Stop: 07/30/19 16:56 Last Admin: 07/21/19 09:19 Dose: 100 mls/hr Documented by: Oxytocin (Pitocin) 30 units in 500 mls @ 16 mls/hr IV .Q24H PRN; Protocol PRN Reason: Labor Induction/Augmentation Stop: 07/22/19 17:00 Last Titration: 07/21/19 10:20 Dose: Infused Documented by: Lactated Ringer's (Lr) 1,000 mls @ 125 mls/hr IV .Q8H [facility] Stop: 08/20/19 12:29 Oxytocin 20 units/ Lactated (Ringer's) 1,002 mls @ 0 mls/hr IV .Q0M [facility] Stop: 08/20/19 12:29 Last Infusion: 07/22/19 05:20 Dose: 0 mls/hr Documented by: Promethazine HCl 25 mg/ Sodium (Chloride) 51 mls @ 204 mls/hr IV Q4H PRN PRN Reason: Nausea And Vomiting Stop: 08/20/19 12:20 Ibuprofen (Motrin) 600 mg PO Q4H PRN PRN Reason: Pain Stop: 08/20/19 12:20 Last Admin: 07/22/19 06:32 Dose: 600 mg Documented by: Ketorolac Tromethamine (Toradol) 30 mg IV Q6H PRN PRN Reason: Pain Stop: 07/27/19 05:39 Magnesium Hydroxide (Milk Of Magnesia) 30 ml PO HS PRN PRN Reason: Constipation Stop: 08/20/19 12:20 Meperidine HCl (Demerol) 50 - 75 mg IV Q4H PRN PRN Reason: Pain Stop: 08/05/19 05:39 Ondansetron HCl (Zofran) 4 mg IV Q4H PRN PRN Reason: Nausea And Vomiting Stop: 08/21/19 05:39 Oxycodone/Acetaminophen (Percocet 5mg/325mg) 1 - 2 tab PO Q4H PRN PRN Reason: Pain Stop: 08/05/19 05:39 Last Admin: 07/22/19 06:33 Dose: 1 tab Documented by: [place] Multivit/[place]/Iron/Folic Ac ( Vitamin) 1 tab PO DAILY@08 [facility] Stop: 08/21/19 07:59 Sennosides (Senokot) 17.2 mg PO HS PRN PRN Reason: Constipation Stop: 08/20/19 12:20 Simethicone (Mylicon) 80 mg PO DAILY@08,13,17,21 [facility] Stop: 08/20/19 12:59 Last Admin: 07/21/19 20:44 Dose: 80 mg Documented by: Zolpidem Tartrate (Ambien) 5 mg PO HS PRN PRN Reason: Sleep Stop: 08/21/19 05:39 <Eileen Mahmood MD, FACOG - Last Filed: 07/22/19 07:34> Co-Signing Physician Notes Resident Physician Supervision Note: I was present with Dr. Holden during the history and exam. I discussed the case with the resident and agree with the findings and plan as documented in the note. Any exceptions or clarifications are listed here: [None] Documented By: Eileen Mahmood MD, FACOG Resident Activity Tracking <Jeremias Holden DO - Last Filed: 07/22/19 06:52> Resident Involvement: Resident Care Provided Care Provided: OB Delivery
[2019-07-22] MEDS: FERROUS SULFATE 325 MG TAB PO SCH (08:24)
[2019-07-22] MEDS: SIMETHICONE 80 MG CHEW PO SCH ×4 (08:24→20:41)
[2019-07-22] MEDS: PRENATAL VITAMIN 1 TAB PO SCH (08:24)
[2019-07-22] MEDS: DOCUSATE SODIUM 100 MG CAP PO SCH ×2 (08:24→20:42)
[2019-07-22 08:35] LABS: Basophils # (auto) 0.02 K/uL (0-0.2); Basophils % (auto) 0.1 %; Eosinophils # (auto) 0.17 K/uL (0-0.5); Eosinophils % (auto) 1.1 %; Hematocrit (blood only) 30.9 % (37-47); Hemoglobin 10.2 g/dL (12.0-16.0); Immature Granulocytes # (auto) 0.07 K/uL (0.00-0.02); Immature Granulocytes % (auto) 0.4 %; Lymphocytes # (auto) 1.45 K/uL (1.2-3.4); Mean Corpuscular Hemoglobin 30.1 pg (25-34); Mean Corpuscular Volume 91.2 fL (80-100); Monocytes # (auto) 0.68 K/uL (0.11-0.59); Monocytes % (auto) 4.2 %; Neutrophils # (auto) 13.73 K/uL (1.4-6.5); Neutrophils % (auto) 85.2 %; Platelet Count 109 K/uL (130-400); Platelet Estimate Decreased (Normal); RDW Coefficient of Variation 14.4 % (11.5-14.5); RDW Standard Deviation 47.5 fL (36.4-46.3); Red Blood Count 3.39 M/uL (4.2-5.4); White Blood Count 16.12 K/uL (4.8-10.8)
[2019-07-22] MEDS ORDERED: NON-FORMULARY MEDICATION (Ferrous Sulfate [Iron (Ferrous Sulfate)] 325 MG) PO SCH (09:00)
[2019-07-22] MEDS ORDERED: BISACODYL 5 MG TABEC PO SCH (20:00)
[2019-07-23] MEDS: OXYCODONE/ACETAMINOPHEN 5mg/325mg TAB PO PRN ×4 (04:31→22:29)
[2019-07-23] MEDS: IBUPROFEN 600 MG TAB PO PRN ×4 (04:32→22:29)
[2019-07-23 06:45] LABS: Hematocrit (blood only) 30.9 % (37-47); Hemoglobin 10.3 g/dL (12.0-16.0)
--- NOTE | 2019-07-23 06:47 | Obstetrical Progress Note ---
Date of Service <Jeremias Holden DO - Last Filed: 07/23/19 06:47> July 23, 2019 Assessment & Plan <Jeremias Holden DO - Last Filed: 07/23/19 06:47> (1) : -POD#2 -Vitals reviewed, WNL (Tmax 37.3) - GBS +, Blood Type O+ - Patient received penicillin prepartum - Clinically stable. - Feels well today. Eating well, voiding well, ambulating well. - Pain well controlled. - Routine post care - After discharge will have [address] Julianna Mckinley #:: 2 Subjective <Jeremias Holden DO - Last Filed: 07/23/19 06:47> Ambulation: ambulating normally Voiding: no voiding problems Passing Gas:: Yes Diet Tolerance:: regular diet Lochia:: Small Feeding Type:: breast feeding Current Pain Level(1-10): 2 (improves with analgesics) Patient is a 28 POD#2. Patient states that she is doing well this morning and that her pain is well controlled. She has no complaints at this point in time. Constitutional: no fever and no chills Respiratory: no cough, no dyspnea and no wheezing Cardiovascular: no chest pain, no dyspnea, no dyspnea on exertion, no edema and no calf pain Breast: no breast pain Gastrointestinal: no abdominal pain, no nausea and no vomiting Genitourinary (female): no dysuria Neurologic: no headache(s) Physical Exam <DO Rashaad Anderson Last Filed: 07/23/19 06:47> Constitutional WD/WN, vitals as above Respiratory normal respiratory effort, lungs clear to auscultation Cardiovascular Rate/Rhythm: regular rate and regular rhythm Heart Sounds: normal S1 and normal S2; no click, no gallop, no murmur and no cardiac rub Extremities: + edema (+1); no calf tenderness Gastrointestinal (Abdomen) Inspection/Auscultation: abdomen normal to inspection, normal bowel sounds and + abdominal surgical incision (Clean and Dry, No Pus noted. ) Percussion/Palpation: + abdomen tender (TTP in lower quadrants, appropriate) and abdomen soft Genitourinary OB Exam Abdomen: + fundal height Fundus: + firm and + relation to umbilicus (1cm below); not tender and not boggy Results & Data <Jeremias TovarDO maurice - Last Filed: 07/23/19 06:47> Vital Signs (Past 12 Hours) Vital Signs Temp Pulse Resp BP 07/23/19 00:10 36.9 C 77 18 113/66 07/22/19 21:10 36.7 C 83 18 130/86 Laboratory Results Abnormal lab results 07/22/19 Range/Units 07:32 WBC 16.12 H (4.8-10.8) K/uL RBC 3.39 L (4.2-5.4) M/uL Hgb 10.2 L (12.0-16.0) g/dL Hct 30.9 L (37-47) % RDW Std Deviation 47.5 H (36.4-46.3) fL Plt Count 109 L (130-400) K/uL MPV 12.0 H (7.4-10.4) fL Immature Gran # (Auto) 0.07 H (0.00-0.02) K/uL Neut # (Auto) 13.73 H (1.4-6.5) K/uL Boyle # (Auto) 0.68 H (0.11-0.59) K/uL Platelet Estimate Decreased L (Normal) Medications Administered Current Inpatient Medications Acetaminophen (Tylenol) 650 mg PO Q4H PRN PRN Reason: Pain or Fever Stop: 08/20/19 14:45 Benzocaine (Dermoplast Pain Relieving [place]) 1 appln EXT UD PRN PRN Reason: use on skin as needed Stop: 08/20/19 12:20 Bisacodyl (Dulcolax) 10 mg VT PRN PRN PRN Reason: Constipation Stop: 08/22/19 12:20 Butorphanol Tartrate (Stadol) 1 mg IV Q1H PRN PRN Reason: Pain Stop: 08/19/19 19:27 Cocaine HCl (Supercream 0.870%) 1 gm EXT UD PRN PRN Reason: hemmorrhoidal inflammation Stop: 08/04/19 12:20 Diphenhydramine HCl (Benadryl) 25 mg IV QID PRN PRN Reason: Itching Stop: 08/21/19 05:39 Diphenhydramine HCl (Benadryl Capsule) 25 mg PO QID PRN PRN Reason: Itching Stop: 08/21/19 05:39 Docusate Sodium (Colace) 100 mg PO DAILY@08,21 [facility] Stop: 08/20/19 20:59 Last Admin: 07/22/19 20:42 Dose: 100 mg Documented by: Ferrous Sulfate (Feosol) 325 mg PO DAILY@08 [facility] Stop: 08/21/19 07:59 Last Admin: 07/22/19 08:24 Dose: 325 mg Documented by: Hydrocortisone (Anusol Hc) 25 mg [place] BID PRN PRN Reason: Hemorrhoids Stop: 08/20/19 12:20 Oxytocin (Pitocin) 30 units in 500 mls @ 333.333 mls/hr IV .Q1H30M PRN; Protocol PRN Reason: Bleeding Control Stop: 08/19/19 16:56 Penicillin G Potassium 3 mu/ (Dextrose) 106 mls @ 100 mls/hr IV Q4H PRN PRN Reason: Give until delivery Stop: 07/30/19 16:56 Last Admin: 07/21/19 09:19 Dose: 100 mls/hr Documented by: Lactated Ringer's (Lr) 1,000 mls @ 125 mls/hr IV .Q8H [facility] Stop: 08/20/19 12:29 Oxytocin 20 units/ Lactated (Ringer's) 1,002 mls @ 0 mls/hr IV .Q0M [facility] Stop: 08/20/19 12:29 Last Infusion: 07/22/19 05:20 Dose: 0 mls/hr Documented by: Promethazine HCl 25 mg/ Sodium (Chloride) 51 mls @ 204 mls/hr IV Q4H PRN PRN Reason: Nausea And Vomiting Stop: 08/20/19 12:20 Ibuprofen (Motrin) 600 mg PO Q4H PRN PRN Reason: Pain Stop: 08/20/19 12:20 Last Admin: 07/23/19 04:32 Dose: 600 mg Documented by: Ketorolac Tromethamine (Toradol) 30 mg IV Q6H PRN PRN Reason: Pain Stop: 07/27/19 05:39 Magnesium Hydroxide (Milk Of Magnesia) 30 ml PO HS PRN PRN Reason: Constipation Stop: 08/20/19 12:20 Meperidine HCl (Demerol) 50 - 75 mg IV Q4H PRN PRN Reason: Pain Stop: 08/05/19 05:39 Ondansetron HCl (Zofran) 4 mg IV Q4H PRN PRN Reason: Nausea And Vomiting Stop: 08/21/19 05:39 Oxycodone/Acetaminophen (Percocet 5mg/325mg) 1 - 2 tab PO Q4H PRN PRN Reason: Pain Stop: 08/05/19 05:39 Last Admin: 07/23/19 04:31 Dose: 1 tab Documented by: Prenat Multivit/[place]/Iron/Folic Ac ( Vitamin) 1 tab PO DAILY@08 [facility] Stop: 08/21/19 07:59 Last Admin: 07/22/19 08:24 Dose: 1 tab Documented by: Sennosides (Senokot) 17.2 mg PO HS PRN PRN Reason: Constipation Stop: 08/20/19 12:20 Simethicone (Mylicon) 80 mg PO DAILY@08,13,17,21 [facility] Stop: 08/20/19 12:59 Last Admin: 07/22/19 20:41 Dose: 80 mg Documented by: Zolpidem Tartrate (Ambien) 5 mg PO HS PRN PRN Reason: Sleep Stop: 08/21/19 05:39 <Analia Willis MD, FACOG - Last Filed: 07/23/19 07:10> Co-Signing Physician Notes Resident Physician Supervision Note: I was present with Dr. Holden during the history and exam. I discussed the case with the resident and agree with the findings and plan as documented in the note. Any exceptions or clarifications are listed here: [None] Documented By: Analia Willis MD, FACOG Resident Activity Tracking <Jeremias Holden DO - Last Filed: 07/23/19 06:47> Resident Involvement: Resident Care Provided Care Provided: OB Delivery
[2019-07-23] MEDS: DOCUSATE SODIUM 100 MG CAP PO SCH ×2 (08:00→20:42)
[2019-07-23] MEDS: FERROUS SULFATE 325 MG TAB PO SCH (08:00)
[2019-07-23] MEDS: PRENATAL VITAMIN 1 TAB PO SCH (08:00)
[2019-07-23] MEDS: SIMETHICONE 80 MG CHEW PO SCH ×4 (08:00→20:42)
[2019-07-23] MEDS ORDERED: BISACODYL 10 MG SUPP PR PRN (12:21)
[2019-07-24] MEDS: OXYCODONE/ACETAMINOPHEN 5mg/325mg TAB PO PRN (07:29)
[2019-07-24] MEDS: IBUPROFEN 600 MG TAB PO PRN (07:30)
[2019-07-24] MEDS: SIMETHICONE 80 MG CHEW PO SCH (07:30)
[2019-07-24] MEDS: PRENATAL VITAMIN 1 TAB PO SCH (07:30)
[2019-07-24] MEDS: FERROUS SULFATE 325 MG TAB PO SCH (07:30)
[2019-07-24] MEDS: DOCUSATE SODIUM 100 MG CAP PO SCH (07:30)
--- NOTE | 2019-07-24 07:57 | Obstetrical Progress Note ---
Date of Service <Jeremias Holden DO - Last Filed: 07/24/19 07:57> July 24, 2019 Assessment & Plan <Jeremias Holden DO - Last Filed: 07/24/19 07:57> (1) : -POD#3 -Vitals reviewed, WNL (Tmax 37.1) - GBS +, Blood Type O+ - Patient received penicillin prepartum - Clinically stable. - Feels well today. Eating well, voiding well, ambulating well. - Pain well controlled. - Routine post care - After discharge will have [address] Julianna Mckinley #:: 3 Subjective <Jeremias Holden DO - Last Filed: 07/24/19 07:57> Ambulation: ambulating normally Voiding: no voiding problems Passing Gas:: Yes Diet Tolerance:: regular diet Lochia:: Small Feeding Type:: breast feeding Current Pain Level(1-10): 5 (improves with analgesics, has not had any this AM yet) Patient is a 28 POD#3. Patient states that she is doing well this morning and that her pain is well controlled. She has no complaints at this point in time. Constitutional: no fever and no chills Respiratory: no cough, no dyspnea and no wheezing Cardiovascular: no chest pain, no dyspnea, no dyspnea on exertion, no edema and no calf pain Breast: no breast pain Gastrointestinal: no abdominal pain, no nausea and no vomiting Genitourinary (female): no dysuria Neurologic: no headache(s) Physical Exam <Jeremias Holden DO - Last Filed: 07/24/19 07:57> Constitutional WD/WN, vitals as above Respiratory normal respiratory effort, lungs clear to auscultation Cardiovascular Rate/Rhythm: regular rate and regular rhythm Heart Sounds: normal S1 and normal S2; no click, no gallop, no murmur and no cardiac rub Extremities: + edema (+1); no calf tenderness Gastrointestinal (Abdomen) Inspection/Auscultation: abdomen normal to inspection, normal bowel sounds and + abdominal surgical incision (Clean and Dry, No Pus noted. ) Percussion/Palpation: + abdomen tender (TTP in lower quadrants, appropriate) and abdomen soft Genitourinary OB Exam Abdomen: + fundal height Fundus: + firm and + relation to umbilicus (2cm below); not tender and not boggy Results & Data <Jeremias Holden DO - Last Filed: 07/24/19 07:57> Vital Signs (Past 12 Hours) Vital Signs Temp Pulse Resp BP Pulse Ox 07/23/19 23:50 36.6 C 72 18 137/84 98 Medications Administered Current Inpatient Medications Acetaminophen (Tylenol) 650 mg PO Q4H PRN PRN Reason: Pain or Fever Stop: 08/20/19 14:45 Benzocaine (Dermoplast Pain Relieving Coaling) 1 appln EXT UD PRN PRN Reason: use on skin as needed Stop: 08/20/19 12:20 Bisacodyl (Dulcolax) 10 mg AK PRN PRN PRN Reason: Constipation Stop: 08/22/19 12:20 Butorphanol Tartrate (Stadol) 1 mg IV Q1H PRN PRN Reason: Pain Stop: 08/19/19 19:27 Cocaine HCl (Supercream 0.870%) 1 gm EXT UD PRN PRN Reason: hemmorrhoidal inflammation Stop: 08/04/19 12:20 Diphenhydramine HCl (Benadryl) 25 mg IV QID PRN PRN Reason: Itching Stop: 08/21/19 05:39 Diphenhydramine HCl (Benadryl Capsule) 25 mg PO QID PRN PRN Reason: Itching Stop: 08/21/19 05:39 Docusate Sodium (Colace) 100 mg PO DAILY@08,21 [facility] Stop: 08/20/19 20:59 Last Admin: 07/24/19 07:30 Dose: 100 mg Documented by: Ferrous Sulfate (Feosol) 325 mg PO DAILY@08 [facility] Stop: 08/21/19 07:59 Last Admin: 07/24/19 07:30 Dose: 325 mg Documented by: Hydrocortisone (Anusol Hc) 25 mg AK BID PRN PRN Reason: Hemorrhoids Stop: 08/20/19 12:20 Oxytocin (Pitocin) 30 units in 500 mls @ 333.333 mls/hr IV .Q1H30M PRN; Protocol PRN Reason: Bleeding Control Stop: 08/19/19 16:56 Penicillin G Potassium 3 mu/ (Dextrose) 106 mls @ 100 mls/hr IV Q4H PRN PRN Reason: Give until delivery Stop: 07/30/19 16:56 Last Admin: 07/21/19 09:19 Dose: 100 mls/hr Documented by: Lactated Ringer's (Lr) 1,000 mls @ 125 mls/hr IV .Q8H [facility] Stop: 08/20/19 12:29 Oxytocin 20 units/ Lactated (Ringer's) 1,002 mls @ 0 mls/hr IV .Q0M [facility] Stop: 08/20/19 12:29 Last Infusion: 07/22/19 05:20 Dose: 0 mls/hr Documented by: Promethazine HCl 25 mg/ Sodium (Chloride) 51 mls @ 204 mls/hr IV Q4H PRN PRN Reason: Nausea And Vomiting Stop: 08/20/19 12:20 Ibuprofen (Motrin) 600 mg PO Q4H PRN PRN Reason: Pain Stop: 08/20/19 12:20 Last Admin: 07/24/19 07:30 Dose: 600 mg Documented by: Ketorolac Tromethamine (Toradol) 30 mg IV Q6H PRN PRN Reason: Pain Stop: 07/27/19 05:39 Magnesium Hydroxide (Milk Of Magnesia) 30 ml PO HS PRN PRN Reason: Constipation Stop: 08/20/19 12:20 Meperidine HCl (Demerol) 50 - 75 mg IV Q4H PRN PRN Reason: Pain Stop: 08/05/19 05:39 Ondansetron HCl (Zofran) 4 mg IV Q4H PRN PRN Reason: Nausea And Vomiting Stop: 08/21/19 05:39 Oxycodone/Acetaminophen (Percocet 5mg/325mg) 1 - 2 tab PO Q4H PRN PRN Reason: Pain Stop: 08/05/19 05:39 Last Admin: 07/24/19 07:29 Dose: 1 tab Documented by: Prenat Multivit/Continuous Conveyor Screen Drier/Iron/Folic Ac ( Vitamin) 1 tab PO DAILY@08 [facility] Stop: 08/21/19 07:59 Last Admin: 07/24/19 07:30 Dose: 1 tab Documented by: Sennosides (Senokot) 17.2 mg PO HS PRN PRN Reason: Constipation Stop: 08/20/19 12:20 Simethicone (Mylicon) 80 mg PO DAILY@08,13,17,21 [facility] Stop: 08/20/19 12:59 Last Admin: 07/24/19 07:30 Dose: 80 mg Documented by: Zolpidem Tartrate (Ambien) 5 mg PO HS PRN PRN Reason: Sleep Stop: 08/21/19 05:39 <Sayda Crow DO - Last Filed: 07/24/19 08:06> Co-Signing Physician Notes Resident Physician Supervision Note: I was present with Dr. Holden during the history and exam. I discussed the case with the resident and agree with the findings and plan as documented in the note. Any exceptions or clarifications are listed here: POD#3 doing well. No concerns. Discharge home today. Instructions discussed. [place]MP checked. Rx percocet e-scribed to pharmacy. Followup in office in 6w. Documented By: Sayda Crow DO Resident Activity Tracking <Jeremias Holden DO - Last Filed: 07/24/19 07:57> Resident Involvement: Resident Care Provided Care Provided: Adult Hospital Medicine
--- NOTE | 2019-07-27 00:19 | Discharge Summary ---
DATE OF PROCEDURE: 07/21/2019. PRINCIPAL DIAGNOSIS: Intrauterine at term with arrest of descent. PRINCIPAL PROCEDURE: Primary low transverse section with delivery of a viable male infant HISTORY AND HOSPITAL COURSE: The patient is a 3, P0 white female, EDC of 07/17/2019 who presented on 07/20 with spontaneous rupture of membranes. She progressed in spontaneous labor until she was fully dilated. She was then augmented with low-dose Pitocin. She pushed for approximately 4 hours and there was minimal descent of the presenting part despite the Pitocin being at 18 milliunits. Because of maternal exhaustion and the head still was too high to attempt a vacuum-assisted delivery, we proceeded with low transverse section. This was done without complications with delivery of a viable male infant, 7 pounds 10 ounces. The patient had an uncomplicated postop course. She remained afebrile throughout her hospital stay. She was eating regular diet on her 1st postop day and ambulating and voiding without difficulty at that time. On admission, hemoglobin was 12.2, hematocrit 35.9. First postop day, hemoglobin 10.2, hematocrit 30.9. Second postop day, hemoglobin 10.3, hematocrit 30.9. She was sent home in good condition with prescriptions for Motrin 600 mg p.o. q. 4 hours p.r.n. pain, Percocet 1 tablet p.o. q. 6 hours p.r.n. pain. She is to be seen in the office in 6 weeks for and postop visit. She is to call for temperature of 101 degrees or higher, heavy vaginal bleeding, burning with urination, increased redness, drainage or pain in her incision, calf tenderness or any other concerns.
== END 2019-07-24 13:00 | disposition home or self-care (01) | DRG 788 ==
LOC: OPB 16:35 → 4S1 16:36 → 4S2 07-21 15:43